=== PATIENT | female | born 1955 | race Two or more races ===

== ENCOUNTER 2022-05-19 13:26 | Emergency (ER) | payer OTHER ==
[~2022-05-19] VITALS: Ht 149.9 cm; Wt 53.4 kg
[2022-05-19 14:12] VITALS: BP 154/107
[2022-05-19] MEDS ORDERED: CEPH500C PO (14:33)
== END 2022-05-19 14:55 | disposition home or self-care (01) ==
LOC: ER 13:26
DX: S01.112A Laceration without foreign body of left eyelid and periocular area, initial encounter (principal); E11.9 Type 2 diabetes mellitus without complications; W22.8XXA Striking against or struck by other objects, initial encounter; Y93.E5 Activity, floor mopping and cleaning; Y92.092 Bedroom in other non-institutional residence as the place of occurrence of the external cause; Y99.8 Other external cause status
CPT/HCPCS: 12013

== ENCOUNTER 2022-05-26 10:31 | Emergency (ER) | payer OTHER ==
[~2022-05-26] VITALS: Ht 154.9 cm; Wt 52.0 kg
[~2022-05-26 10:31] MED LIST: CEPH500C PO
[2022-05-26 10:59] VITALS: BP 158/61
== END 2022-05-26 11:18 | disposition home or self-care (01) ==
LOC: ER 10:31
DX: S01.112D Laceration without foreign body of left eyelid and periocular area, subsequent encounter (principal); X58.XXXD Exposure to other specified factors, subsequent encounter

== ENCOUNTER 2024-02-01 16:41 | Emergency (ER) | payer OTHER ==
[~2024-02-01] VITALS: Ht 154.9 cm; Wt 50.6 kg
[2024-02-01 19:59] LABS: Basophils # (auto) 0 10 ^3/uL (0-0.2); Basophils % (auto) 0.8 % (0.0-2.0); Eosinophils # (auto) 0.2 10 ^3/uL (0-0.8); Eosinophils % (auto) 4.2 % (0.0-7.0); Hematocrit 36.1 % (36.0-46.0); Hemoglobin 12.5 g/dL (12.2-16.2); Lymphocytes # (auto) 1.9 10 ^3/uL (0.4-5.4); Mean Corpuscular Hemoglobin 30.2 pg (28.0-32.0); Mean Corpuscular Hgb Conc. 34.7 g/dL (32.0-36.0); Mean Corpuscular Volume 87.2 fL (80.0-100.0); Monocytes # (auto) 0.4 10 ^3/uL (0-1.3); Monocytes % (auto) 7.8 % (0.0-12.0); Neutrophils # (auto) 2.6 10 ^3/uL (1.6-8.6); Neutrophils % (auto) 50.2 % (37.0-80.0); Platelet Count (auto) 212 10^3/uL (140-450); Red Blood Cells 4.13 10^6/uL (4.0-5.20); White Blood Cell 5.2 10^3/uL (4.4-10.8)
[2024-02-01 20:05] LABS: Urine Bacteria FEW /hpf (None Seen); Urine Blood TRACE /uL (Negative); Urine Clarity Clear (Clear); Urine Color Light-Yellow (Yellow); Urine Protein, UAD Negative (Negative); Urine Specific Gravity 1.013 (1.001-1.035); Urine Urobilinogen Normal (Negative); Urine WBC 13 /hpf (0 - 5); Urine pH 5.5 (5.0-9.0)
[2024-02-01 20:12] LABS: Chloride 99 mmol/L (98-107); Potassium 4.4 mmol/L (3.5-5.1); Sodium 135 mmol/L (136-145)
[2024-02-01 20:13] LABS: Anion Gap 6 (5-15); Carbon Dioxide 30 mmol/L (20-30)
[2024-02-01 20:14] LABS: Calcium 10.7 mg/dL (8.7-10.4)
[2024-02-01 20:19] LABS: BUN/Creatinine Ratio 16.8 (10.0-20.0); Blood Urea Nitrogen 18 mg/dL (9-23); Glucose 218 mg/dL (74-106)
[2024-02-01] MEDS ORDERED: CIPR-173 PO (21:21)
[2024-02-01 23:23] VITALS: TEMP 97.8
[2024-02-01 23:25] VITALS: BP 174/65; PULSE 61; RESP 18; O2SAT 97
== END 2024-02-01 23:28 | disposition home or self-care (01) ==
LOC: ER 16:41
DX: N39.0 Urinary tract infection, site not specified (principal); M54.2 Cervicalgia; R51.9 Headache, unspecified; E11.9 Type 2 diabetes mellitus without complications; E78.5 Hyperlipidemia, unspecified; Z90.49 Acquired absence of other specified parts of digestive tract; Z90.710 Acquired absence of both cervix and uterus
CPT/HCPCS: 36415; 70450; 80048; 81001; 85025

== ENCOUNTER 2024-05-16 12:39 | Emergency (ER) | payer OTHER ==
[~2024-05-16] VITALS: Ht 154.9 cm; Wt 50.0 kg
[~2024-05-16 12:39] MED LIST changes: +CIPR-173 PO
[2024-05-16 13:06] VITALS: BP 128/55; PULSE 84; RESP 16; O2SAT 97
== END 2024-05-16 15:16 | disposition left against medical advice (07) ==
LOC: ER 12:39
DX: S61.211A Laceration without foreign body of left index finger without damage to nail, initial encounter (principal); Z53.21 Procedure and treatment not carried out due to patient leaving prior to being seen by health care provider; X58.XXXA Exposure to other specified factors, initial encounter; Y93.89 Activity, other specified; Y92.89 Other specified places as the place of occurrence of the external cause; Y99.8 Other external cause status